=== PATIENT | male | born 1995 | race Caucasian/White ===

== ENCOUNTER 2017-11-09 13:52 | Emergency (ER) | payer OTHER ==
[~2017-11-09] VITALS: Ht 172.7 cm; Wt 88.5 kg
[~2017-11-09 13:52] MED LIST: CEPH250SUA PO; CODACEE120 PO; MONT10T PO; RXCEPH250S PO
[2017-11-09] MEDS ORDERED: Percocet 5-3251 EACH PO (14:51)
[2017-11-09] MEDS ORDERED: Robaxin500 MG PO (14:51)
== END 2017-11-09 15:00 | disposition home or self-care (01) ==
LOC: ER 13:52
DX: S49.92XA Unspecified injury of left shoulder and upper arm, initial encounter (principal); J45.909 Unspecified asthma, uncomplicated; Z87.891 Personal history of nicotine dependence; Z91.018 Allergy to other foods; W22.8XXA Striking against or struck by other objects, initial encounter
CPT/HCPCS: 73030; 73080; 99283